=== PATIENT | male | born 1945 | race Hispanic/Latino ===

== ENCOUNTER 2020-07-12 11:47 | Emergency (ER) | payer SELFPAY ==
[2020-07-12 13:43] LABS: Basophils % 0.4 % (0-1.3); Hematocrit 36.2 % (39.6-49.0); Lymphocytes % 7.4 % (15.3-44.8); MPV 8.8 fL (7.6-11.3); RBC Red Blood Cell Count 4.22 M/uL (4.33-5.43)
[2020-07-12 13:55] LABS: Albumin 3.5 g/dL (3.4-5.0); Bilirubin Total 0.4 mg/dL (0.2-1.0); Potassium 4.3 mmol/L (3.5-5.1); Protein, Total 8.2 g/dL (6.4-8.2); Uric Acid 5.3 mg/dL (3.5-7.2)
[2020-07-12 14:56] LABS: Blood Morphology Comment NOT SEEN (NOT SEEN); Platelet Estimate ADEQ; White Blood Cell Scan OK (OK)
[2020-07-12] MEDS ORDERED: ACETAMINOPHEN 325 MG TABLET ONE (15:04)
--- NOTE | 2020-07-12 15:08 | RAD REPORT ---
EXAM DESCRIPTION: RAD - Foot Left 3 View - 07/12/2020 2:45 pm CLINICAL HISTORY: 2nd toe painno precipitating trauma COMPARISON: None FINDINGS: Left first toe has been resected. Head of the metatarsal at the amputation site shows no a cute finding. Patient has a large plantar spur. Significant soft tissue swelling is present in the second toe. The second proximal phalanx shows no a cute finding. There are mild degenerative changes at the second PIP joint. Distal phalanx is absent. No noted history of prior amputation. The distal aspect of the second middle phalanx shows bone loss change. There is a small free fragment of bone along the medial margin. In the absence of any additio nal history this is most likely osteomyelitis. The third- fifth toes are intact. No acute metatarsal finding. Midfoot and ankle joint, as imaged, sh ow no acute findings. Arterial tree calcifications are present. No air in the soft tissues. IMPRESSION: Prominent left second toe soft tissue swelling. No air in the soft tissues. The left second distal phalanx is absent. No history provided indicating resection. It is possible the patient has a normal variant where the middle and distal phalanges are fused as a single unit. However, there are bone loss changes of the left second middle phalanx that would indica te osteomyelitis.
--- NOTE | 2020-07-12 15:33 | ER ---
Nurse's Notes [facility] Name: Joseluis Belle Age: 75 yrs Sex: Male : 1945 Arrival Date: 07/12/2020 Time: 11:51 Bed 13 Private MD: Diagnosis: Cellulitis of toe Presentation: 07/12 12:15 Chief complaint: Patient states: L foot 2nd digit pain and swelling for 2 days. No ll1 known trauma, no discharge, no fever. Coronavirus screen: Client denies travel out of the [place] in the last 14 days. At this time, the client does not indicate any symptoms associated with coronavirus-19. Ebola Screen: Patient denies travel to an Ebola-affected area in the 21 days before illness onset. Initial Sepsis Screen: Does the patient meet any 2 criteria? HR > 90 bpm. No. Patient's initial sepsis screen is negative. Does the patient have a suspected source of infection? Yes: Bone or joint infection. Risk Assessment: Do you want to hurt yourself or someone else? Patient reports no desire to harm self or others. Onset of symptoms was July 11, 2020. 12:15 Method Of Arrival: Ambulatory ll1 12:15 Acuity: SANYA 3 ll1 Historical: - Allergies: 12:18 No Known Allergies; ll1 - Home Meds: 12:45 metformin 500 mg Oral tab 1 tab 2 times per day [Active]; atorvastatin oral oral vg1 [Active]; - PMHx: 12:18 Diabetes - NIDDM; High Cholesterol; ll1 - PSHx: 12:18 L great toe amputation; ll1 - Immunization history:: Flu vaccine status is unknown. - Social history:: Smoking status: Patient denies any tobacco usage or history of. Screenin:46 Abuse screen: Denies threats or abuse. Nutritional screening: No deficits noted. vg1 Tuberculosis screening: No symptoms or risk factors identified. Fall Risk No fall in past 12 months (0 pts). No secondary diagnosis (0 pts). No IV (0 pts). Ambulatory Aid- Crutches/Cane/Walker (15 pts). Gait- Impaired (20 pts.). Mental Status- Oriented to own ability (0 pts). Total Bell Fall Scale indicates Low Risk Score (25-44 pts). Fall prevention measures have been instituted. Side Rails Up X 2 Placed close to Nursing Station Family Present and informed to notify staff if they need to leave bedside. Assessment: 12:41 General: Appears in no apparent distress. comfortable, Behavior is calm, cooperative. vg1 Pain: Complains of pain in left second toe and Left second toenail Pain currently is 5 out of 10 on a pain scale. Pain began 2-3 days ago. Neuro: Level of Consciousness is awake, alert, obeys commands, Oriented to person, place, time, situation. Cardiovascular: Patient's skin is warm and dry. Respiratory: Airway is patent Respiratory effort is even, unlabored. GI: No signs and/or symptoms were reported involving the gastrointestinal system. : No signs and/or symptoms were reported regarding the genitourinary system. EENT: No signs and/or symptoms were reported regarding the EENT system. Derm: Skin is intact, Skin is red, Left foot second digit. Musculoskeletal: Amputation of left first toe and Left first toenail. Swelling present in left second toe and Left second toenail. 12:44 Musculoskeletal: Amputation of right third toe and Right third toenail. vg1 14:07 Reassessment: Patient appears in no apparent distress at this time. No changes from vg1 previously documented assessment. Patient and/or family updated on plan of care and expected duration. Pain level reassessed. Patient is alert, oriented x 3, equal unlabored respirations, skin warm/dry/pink. 14:40 Reassessment: Received VO from JOSE Pina to administer Tylenol 650 mg PO x1. vg1 15:11 Reassessment: Patient appears in no apparent distress at this time. No changes from vg1 previously documented assessment. Patient and/or family updated on plan of care and expected duration. Pain level reassessed. Patient is alert, oriented x 3, equal unlabored respirations, skin warm/dry/pink. 15:39 Reassessment: Patient appears in no apparent distress at this time. No changes from vg1 previously documented assessment. Patient and/or family updated on plan of care and expected duration. Pain level reassessed. Patient is alert, oriented x 3, equal unlabored respirations, skin warm/dry/pink. Patient denies pain at this time. Vital Signs: 12:15 BP 177 / 91; Pulse 100; Resp 17; Temp 99.0; Pulse Ox 100% ; Weight 84.82 kg; Height 5 ll1 ft. 6 in. (167.64 cm); Pain 3/10; 12:45 BP 175 / 92; Pulse 98; Resp 16; Pulse Ox 100% ; vg1 14:07 BP 178 / 98; Pulse 98; Resp 16; Pulse Ox 99% on R/A; vg1 15:11 BP 160 / 88; Pulse 88; Resp 16; Pulse Ox 98% on R/A; vg1 12:15 Body Mass Index 30.18 (84.82 kg, 167.64 cm) ll1 ED Course: 11:51 Patient arrived in ED. ds1 12:18 Triage completed. ll1 12:19 Arm band placed on Patient placed in an exam room, on a stretcher. 1 12:27 Jesus Pina PA is PHCP. [facility] 12:27 Josh Burr MD is Attending Physician. [facility] 12:35 Love Martin RN is Primary Nurse. vg1 12:46 Patient has correct armband on for positive identification. Bed in low position. Call vg1 light in reach. Side rails up X 1. Adult w/ patient. 13:18 Initial lab(s) drawn, by wv, sent to lab. Inserted saline lock: 22 gauge in right vg1 antecubital area, using aseptic technique. Blood collected. 14:46 Foot Left 3 View XRAY In Process Unspecified. EDMS 15:40 No provider procedures requiring assistance completed. IV discontinued, intact, vg1 bleeding controlled, No redness/swelling at site. Pressure dressing applied. Administered Medications: 14:45 Drug: Tylenol 650 mg Route: PO; vg1 15:40 Follow up: Response: No adverse reaction; Pain is decreased vg1 Outcome: 15:32 Discharge ordered by . [facility] 15:40 Discharged to home ambulatory, with family. vg1 15:40 Condition: stable 15:40 Discharge instructions given to patient, family, Instructed on discharge instructions, follow up and referral plans. medication usage, Demonstrated understanding of instructions, follow-up care, medications, Prescriptions given X 1. 15:40 Patient left the ED. vg1 Signatures: Dispatcher [employer] EDMS Jesus Pina PA PA Kassidy Dennison ds1 Love Martin RN RN vg1 Kayode, Lynsay, RN RN ll1
--- NOTE | 2020-07-12 15:33 | EDPHYS ---
Physician Documentation [facility] Name: Joseluis Belle Age: 75 yrs Sex: Male : 1945 Arrival Date: 07/12/2020 Time: 11:51 Bed 13 Private MD: ED Physician Josh Burr HPI: 07/12 12:56 This 75 yrs old Male presents to ER via Ambulatory with complaints of Foot jmm Swelling. 12:56 The patient presents with pain, swelling. The complaints affect the left foot. Onset: jmm The symptoms/episode began/occurred gradually, 2 day(s) ago. Modifying factors: The symptoms are alleviated by nothing, the symptoms are aggravated by nothing. Associated signs and symptoms: Pertinent negatives: fever, vomiting, warmth, weakness. Historical: - Allergies: 12:18 No Known Allergies; ll1 - Home Meds: 12:45 metformin 500 mg Oral tab 1 tab 2 times per day [Active]; atorvastatin oral oral vg1 [Active]; - PMHx: 12:18 Diabetes - NIDDM; High Cholesterol; ll1 - PSHx: 12:18 L great toe amputation; ll1 - Immunization history:: Flu vaccine status is unknown. - Social history:: Smoking status: Patient denies any tobacco usage or history of. ROS: 12:56 Constitutional: Negative for fever, chills, and weight loss, Cardiovascular: Negative jmm for chest pain, palpitations, and edema, Respiratory: Negative for shortness of breath, cough, wheezing, and pleuritic chest pain. 12:56 MS/extremity: Positive for swelling. 12:56 All other systems are negative. Exam: 12:56 Constitutional: This is a well developed, well nourished patient who is awake, alert, jmm and in no acute distress. Head/Face: atraumatic. Eyes: EOMI, no conjunctival erythema appreciated ENT: Moist Mucus Membranes Neck: Trachea midline, Supple Chest/axilla: Normal chest wall appearance and motion. Cardiovascular: Regular rate and rhythm. No edema appreciated Respiratory: Normal respirations, no respiratory distress appreciated Abdomen/GI: Non distended, soft Back: Normal ROM 12:56 Neuro: Awake and alert, normal gait Psych: Behavior is normal, Mood is normal, Patient is cooperative and pleasant 12:56 Musculoskeletal/extremity: ROM: intact in all extremities. 12:56 Skin: mild erythema noted to the left 2nd toe. Vital Signs: 12:15 BP 177 / 91; Pulse 100; Resp 17; Temp 99.0; Pulse Ox 100% ; Weight 84.82 kg; Height 5 ll1 ft. 6 in. (167.64 cm); Pain 3/10; 12:45 BP 175 / 92; Pulse 98; Resp 16; Pulse Ox 100% ; vg1 14:07 BP 178 / 98; Pulse 98; Resp 16; Pulse Ox 99% on R/A; vg1 15:11 BP 160 / 88; Pulse 88; Resp 16; Pulse Ox 98% on R/A; vg1 12:15 Body Mass Index 30.18 (84.82 kg, 167.64 cm) ll1 MDM: 12:54 Patient medically screened. [facility] 15:31 Data reviewed: vital signs, nurses notes. Counseling: I had a detailed discussion with [facility] the patient and/or guardian regarding: the historical points, exam findings, and any diagnostic results supporting the discharge/admit diagnosis, lab results, radiology results, the need for outpatient follow up, to return to the emergency department if symptoms worsen or persist or if there are any questions or concerns that arise at home. ED course: Patient is alert and non toxic in appearance in the ED. No signs of sepsis. Advised to follow up with pcp/podiatry for further evaluation. patient understood and agrees with the plan of care. . 07/12 12:56 Order name: CBC with Diff; Complete Time: 15:12 [facility] 07/12 12:56 Order name: CMP; Complete Time: 14:03 [facility] 07/12 12:56 Order name: ESR [facility] 07/12 12:56 Order name: Uric Acid; Complete Time: 14:03 [facility] 07/12 12:56 Order name: Lactate; Complete Time: 14:03 [facility] 07/12 14:56 Order name: CBC Smear Scan; Complete Time: 15:12 [facility] 07/12 12:56 Order name: Saline Lock; Complete Time: 13:18 [facility] 07/12 12:56 Order name: Foot Left 3 View XRAY; Complete Time: 15:12 [facility] Administered Medications: 14:45 Drug: Tylenol 650 mg Route: PO; vg1 15:40 Follow up: Response: No adverse reaction; Pain is decreased 1 Disposition: 17:33 Co-signature as Attending Physician, Josh Burr MD. rn Disposition: 07/12/20 15:32 Discharged to Home. Impression: Cellulitis of toe. - Condition is Stable. - Discharge Instructions: Cellulitis, Adult. - Prescriptions for Bactrim DS 800- 160 mg Oral Tablet - take 1 tablet by ORAL route every 12 hours for 10 days; 20 tablet. - Medication Reconciliation Form, Thank You Letter, Antibiotic Education, Prescription Opioid Use form. - Follow up: Private Physician; When: 2 - 3 days; Reason: Recheck today's complaints, Continuance of care, Re-evaluation by your physician. Signatures: Dispatcher [employer] EDMS Jesus Pina PA PA jm Josh Burr MD MD rn Garcia, VLAD Aleman RN vg1 Zarina Headley RN RN ll1 Corrections: (The following items were deleted from the chart) 15:40 15:32 07/12/2020 15:32 Discharged to Home. Impression: Cellulitis of toe. Condition is vg1 Stable. Forms are Medication Reconciliation Form, Thank You Letter, Antibiotic Education, Prescription Opioid Use. Follow up: Private Physician; When: 2 - 3 days; Reason: Recheck today's complaints, Continuance of care, Re-evaluation by your physician. raf
[2020-07-12 16:09] VITALS: TEMP 99
[2020-07-12 16:14] VITALS: BP 160/88; O2SAT 98
== END 2020-07-12 15:40 | disposition home or self-care (01) ==
LOC: ER 11:47
DX: L03.032 Cellulitis of left toe (principal); E11.9 Type 2 diabetes mellitus without complications; E78.00 Pure hypercholesterolemia, unspecified
CPT/HCPCS: 36415; 80053; 83605; 84550; 85025; 85652; 99284